=== PATIENT | male | born 1940 | race Caucasian/White ===

== ENCOUNTER 2017-06-25 12:36 | Outpatient (CLI) | payer MEDICARE, OTHER ==
--- NOTE | 2017-06-25 13:38 | RAD ---
CHEST PA AND LATERAL: HISTORY: A 76-year-old male with a history of dyspnea. COMPARISON: No old studies. FINDINGS: Hyperinflation and chronic lung changes. Heart size is normal. Atherosclerosis of the aorta. Promi nent biapical pleural thickening, including some calcification. Post surgical changes in the left up per quadrant. IMPRESSION: 1. Chronic lung changes. 2. Atherosclerosis of the aorta with ectasia. 3. No significant acute process. POS: PADMINI
== END 2017-06-25 12:37 | disposition home or self-care (01) ==
LOC: RAD 12:36
PROVIDERS: ATTEND Internal Medicine
DX: R06.00 Dyspnea, unspecified (principal); I70.0 Atherosclerosis of aorta; I77.819 Aortic ectasia, unspecified site
CPT/HCPCS: 71046

== ENCOUNTER 2017-07-24 09:03 | Outpatient (CLI) | payer MEDICARE, OTHER | END 2017-07-24 09:04 | disposition home or self-care (01) | LOC: CP 09:03 | PROVIDERS: ATTEND Internal Medicine | DX: J44.9 Chronic obstructive pulmonary disease, unspecified (principal) | CPT/HCPCS: 94060; 94727; 94729 ==